=== PATIENT | female | born 1965 | race Caucasian/White ===

== ENCOUNTER 2020-08-22 14:40 | Emergency (ER) | payer BC ==
[~2020-08-22] VITALS: Ht 172.7 cm; Wt 83.9 kg
[2020-08-22 15:16] LABS: ABSOLUTE NEUTROPHILS 4.6 thou/uL (1.4-8.2); BASOPHILS 0.7 % (0.0-2.0); EOSINOPHILS 0.3 % (0.0-3.0); HEMATOCRIT 39.2 % (37.0-47.0); HEMOGLOBIN 13.6 gm/dL (12.0-15.0); LYMPHOCYTES 31.8 % (24.0-44.0); MCH 30.8 pg (26.0-34.0); MCHC 34.7 g/dL (28.0-37.0); MCV 88.7 fL (80.0-100.0); MONOCYTES 6.2 % (1.0-8.0); PLATELET COUNT 197 thou/uL (150-400); RBC 4.42 mil/uL (4.20-5.00); RDW 12.1 % (10.5-14.5); WBC 7.5 thou/uL (4.0-11.0)
[2020-08-22 15:20] LABS: ANION GAP 9 mmol/L (7-16); BUN 13 mg/dL (7-18); CHLORIDE 103 mmol/L (98-107); CO2 28 mmol/L (21-32); CREATININE 0.8 mg/dL (0.6-1.0); GLUCOSE 95 mg/dL (74-106); POTASSIUM 3.5 mmol/L (3.5-5.1); SODIUM 140 mmol/L (136-145)
[2020-08-22 15:29] LABS: SGOT 17 U/L (15-37); SGPT 16 U/L (30-65); TOTAL BILIRUBIN 0.9 mg/dL (0.2-1.0); TOTAL PROTEIN 7.7 g/dL (6.4-8.2); TROPONIN-I <0.06 ng/mL (<0.06)
[2020-08-22 18:39] VITALS: BP 123/82
--- NOTE | 2020-08-23 07:21 | EKG ---
[facility] [place] [address] ELECTROCARDIOGRAM REPORT Name: JOEY AMADOR Room #: DEP [facility]#: [id number] Admission: 08/22/20 Attend Phys: Discharge: 08/22/20 Date of : 67 Report #: [id number] THIS REPORT FOR: cc: Shaun Avila MD, Rene P. MD Santiago, Patrick MD [facility] ~ THIS REPORT FOR: //name// [facility] ED Test Date: 2020-08-22 Test Time: 14:48:29 Pat Name: JOEY AMADOR Department: Room: Gender: F Induction Heat Treater: TAHIR : 1965 Requested By: Uche Aguilar Order Number: [id number] MD: Rocky Faria Measurements Intervals [place] Rate: 74 P: 30 ME: 162 QRS: -11 QRSD: 81 T: 29 QT: 370 QTc: 411 Interpretive Statements Sinus rhythm Q in lead III No previous ECG available for comparison Electronically Signed On 08-23-2020 7:21:32 ASSISTANT DIRECTOR OF NURSING by Rocky Faria [email or web address] <ELECTRONICALLY SIGNED> By: Rocky Faria MD, FACC 08/23/20 0721 47 47 Rocky Faria MD, [facility] /EPI
== END 2020-08-22 20:22 | disposition home or self-care (01) ==
LOC: ER 14:40
PROVIDERS: Emergency Medicine
DX: R07.89 Other chest pain (principal); R06.02 Shortness of breath; R42 Dizziness and giddiness; R05 Cough; M79.604 Pain in right leg; M79.605 Pain in left leg; I10 Essential (primary) hypertension; E11.9 Type 2 diabetes mellitus without complications; E78.00 Pure hypercholesterolemia, unspecified; E66.9 Obesity, unspecified; Z88.2 Allergy status to sulfonamides; Z68.28 Body mass index [BMI] 28.0-28.9, adult

== ENCOUNTER → 2020-12-20 | Outpatient (CLI) | payer BC | LOC: LAB 10-24 16:18 | PROVIDERS: ATTEND Anesthesiology | DX: Z01.812 Encounter for preprocedural laboratory examination (principal); Z20.822 Contact with and (suspected) exposure to COVID-19 ==

== ENCOUNTER → 2021-04-12 | Outpatient (CLI) | payer BC | LOC: RAD 09:24 | PROVIDERS: ATTEND Nurse Practitioner | DX: S93.401A Sprain of unspecified ligament of right ankle, initial encounter (principal); X58.XXXA Exposure to other specified factors, initial encounter; Y93.89 Activity, other specified; Y92.89 Other specified places as the place of occurrence of the external cause; Y99.8 Other external cause status ==